=== PATIENT | male | born 1970 | race Caucasian/White ===

== ENCOUNTER 2018-04-25 13:14 | Emergency (ER) | payer SELFPAY ==
[~2018-04-25] VITALS: Ht 175.3 cm; Wt 112.5 kg
[~2018-04-25 13:14] MED LIST: BENZ2AMP3 PO; HALO5TAB8 PO; ZIPR80CA2 PO
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
--- NOTE | 2018-04-25 14:28 | NUR ---
TOI MAIER AT BS FOR RE-EVAL.
--- NOTE | 2018-04-25 14:37 | NUR ---
CALLED PINEDA, GOLF INSTRUCTOR. PINEDA WILL SEE THE PATIENT IN THE WAITING ROOM.
--- NOTE | 2018-04-25 14:40 | NUR ---
Patient discharged to home in stable condition. Written and verbal after care instructions given. Patient verbalizes understanding of instruction.
--- NOTE | 2018-04-25 14:41 | NUR ---
PINEDA, SUPERVISOR TUMBLING AND ROLLING AT
[2018-04-25 14:42] VITALS: BP 112/71
--- NOTE | 2018-04-25 14:49 | NUR ---
RUPERT received a call from BEBETO Gordon requesting to assist pt. with some resources. RUPERT met with pt. bedside. Pt. is alert and oriented x 4. Pt. is cooperative and pleasant with SW. Pt. states he resides with his sister and she will be coming to pick him up from the hospital. Pt. is interested in referrals to board and care facilities. RUPERT gave him the following list of board and care: [facility] ; [facility] and [facility] . No other social service needs are requested at this time. SW is available, if needed. RUPERT updated BEBETO Gordon regarding providing pt. with needed resources.
== END 2018-04-25 14:44 | disposition home or self-care (01) ==
LOC: ER 13:16
DX: S93.402A Sprain of unspecified ligament of left ankle, initial encounter (principal); B35.3 Tinea pedis; E11.9 Type 2 diabetes mellitus without complications; F25.9 Schizoaffective disorder, unspecified; F17.200 Nicotine dependence, unspecified, uncomplicated; Z88.8 Allergy status to other drugs, medicaments and biological substances; Z60.2 Problems related to living alone; V79.9XXA Bus occupant (driver) (passenger) injured in unspecified traffic accident, initial encounter; Y93.89 Activity, other specified; Y92.410 Unspecified street and highway as the place of occurrence of the external cause; Y99.8 Other external cause status
CPT/HCPCS: 73610-TC; 73630-TC; A4606; Z7610

== ENCOUNTER 2019-01-26 03:49 | Emergency (ER) | payer OTHER ==
[~2019-01-26] VITALS: Ht 175.3 cm; Wt 115.7 kg
--- NOTE | 2019-01-26 04:05 | NUR ---
PER PT REQUEST, PROVIDED PT WITH SANDWICH, WATER, TOOTH BRUSH, AND TOOTH PASTE
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
[2019-01-26 04:23] LABS: BASOPHILS % (AUTO) 0.5 % (0.0-2.0); EOSINOPHILS % (AUTO) 1.6 % (0.0-6.0); HEMATOCRIT 46 % (39-51); HEMOGLOBIN 15.9 g/dL (13.5-17.5); LYMPHOCYTES # (AUTO) 2.7 /CMM (0.8-4.8); LYMPHOCYTES % (AUTO) 32.7 % (20.0-44.0); MEAN CORPUSCULAR HGB CONC 35 g/dl (31.0-36.0); MEAN CORPUSCULAR VOLUME 92 fL (80-96); MONOCYTES # (AUTO) 0.6 /CMM (0.1-1.30); MONOCYTES % (AUTO) 6.8 % (2.0-12.0); NEUTROPHILS # (AUTO) 4.8 /CMM (1.8-8.9); NEUTROPHILS % (AUTO) 58.4 % (43.0-81.0); PLATELET COUNT (AUTO) 310 /CMM (150-450); RED BLOOD CELL COUNT(AUTO) 4.94 MIL/uL (4.5-6.0); WHITE BLOOD COUNT (AUTO) 8.3 K/uL (4.3-11.0)
[2019-01-26 04:29] LABS: CALCIUM, SERUM 8.9 mg/dL (8.5-10.1); CARBON DIOXIDE 27 mmol/L (21-32); CHLORIDE 98 mmol/L (98-107); CREATININE 1.1 mg/dL (0.6-1.3); GLUCOSE 144 mg/dL (74-106); POTASSIUM 3.3 mmol/L (3.5-5.1); SODIUM SERUM 136 mmol/L (136-145); UREA NITROGEN, BLOOD 12 mg/dL (7-18)
[2019-01-26 04:36] LABS: ACETAMINOPHEN 0 ug/ml (10-30); ALANINE AMINOTRANSFERASE 26 U/L (12-78); ALBUMIN 3.4 g/dL (3.4-5.0); ALCOHOL, BLOOD < 3 mg/dL (0-0); ALKALINE PHOSPHATASE 61 U/L (46-116); ASPARTATE AMINOTRANSFERASE 19 U/L (15-37); BILIRUBIN,DIRECT 0.1 mg/dL (0.0-0.2); BILIRUBIN,TOTAL 0.2 mg/dL (0.2-1.0); SALICYLATE 2.5 mg/dL (2.8-20.0); TOTAL PROTEIN, SERUM 7.3 g/dL (6.4-8.2)
[2019-01-26] MEDS ORDERED: POTASSIUM CHLORIDE 20 MEQ TAB.PRT.SR PO ONE ×2 (05:00→05:10)
[2019-01-26 05:27] LABS: APPEARANCE,URINE Clear (CLEAR); BILIRUBIN,URINE Negative (NEGATIVE); BLOOD, URINE Trace-lysed Ery/uL (NEGATIVE); COLOR,URINE Yellow (YELLOW); KETONES,URINE Negative (NEGATIVE); LEUKOCYTE ESTERASE ,URINE Negative (NEGATIVE); NITRITE, URINE Negative (NEGATIVE); PROTEIN,URINE Negative (NEGATIVE); UGLUCOSE Negative (NEGATIVE); UROBILINOGEN,URINE 0.2 EU/dL (0.2)
--- NOTE | 2019-01-26 05:33 | NUR ---
UA COLLECTED AND SENT.
[2019-01-26 06:03] LABS: BACTERIA,URINE Rare /HPF (None Seen); RBC,URINE 0-2 /HPF (0-2); SQUAMOUS EPITHELIAL CELL,UR Rare /HPF (None Seen); WBC,URINE 0-2 /HPF (0-3)
--- NOTE | 2019-01-26 07:02 | NUR ---
PT ASLEEP, ALL NEEDS MET, VS STABLE.
[2019-01-26 07:04] VITALS: BP 132/84
--- NOTE | 2019-01-26 08:45 | NUR ---
RECEIVED CALL FROM OSWALDO OF [facility] FOR PT INTAKE AND TO INFORM TO GIVE REPORT. PT TRANSPORT ARRANGED MY [facility]. ETA IN 1 HOUR.
--- NOTE | 2019-01-26 09:00 | NUR ---
VS 135/83, 97.9, 85, 16, 100% ON RA, 0/10 PAIN
--- NOTE | 2019-01-26 09:03 | NUR ---
REPORT GIVEN TO BEBETO AGRAWAL OF [facility]. AWAITING PT TRANSPORT FOR FLO.
--- NOTE | 2019-01-26 09:10 | NUR ---
PROVIDED BREAKFAST TRAY. PT TOLERATING PO WELL
--- NOTE | 2019-01-26 09:30 | NUR ---
1ST MED TRANSPORT ARRIVED TO [facility] FOR TRANSPORT. REPORT GIVEN TO AMBULANCE STAFF.
--- NOTE | 2019-01-26 09:39 | NUR ---
Ivan portillo in [facility] - 01/26/19 at 0943 by MARY BETH DC
--- NOTE | 2019-01-26 09:39 | NUR ---
Patient discharged to home in stable condition. Written and verbal after care instructions given. Patient verbalizes understanding of instruction.
--- NOTE | 2019-01-26 09:41 | NUR ---
PT LEFT VIA GURNEY TO [facility] VIA AMBULANCE WITH 2 STAFF.
== END 2019-01-26 09:40 ==
LOC: ER 03:53
DX: R45.851 Suicidal ideations (principal); I10 Essential (primary) hypertension; E78.5 Hyperlipidemia, unspecified; E11.9 Type 2 diabetes mellitus without complications; M41.9 Scoliosis, unspecified; F17.200 Nicotine dependence, unspecified, uncomplicated; Z88.8 Allergy status to other drugs, medicaments and biological substances; Z60.2 Problems related to living alone; Z79.899 Other long term (current) drug therapy
CPT/HCPCS: 36415; 80048; 80076; 80305; 80307; 80329; 81001; 85025; 99285; G0480; 81000-TC

== ENCOUNTER 2019-02-23 01:31 | Emergency (ER) | payer OTHER ==
[~2019-02-23] VITALS: Ht 175.3 cm; Wt 116.6 kg
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
--- NOTE | 2019-02-23 01:56 | NUR ---
MD AT BEDSIDE FOR EVAL. PT VERY RUDE, ARROGANT AND CURSED MD DURING EVAL.
--- NOTE | 2019-02-23 02:06 | NUR ---
pt refused to give urine specimen at this time. per pt he has not been drinking water.
--- NOTE | 2019-02-23 02:10 | NUR ---
COLLEGE ATHLETE AT BEDSIDE FOR BLOOD DRAW
--- NOTE | 2019-02-23 02:13 | NUR ---
MD AWARE THAT PT IS UNABLE TO GIVE URINE AT THIS TIME.
[2019-02-23 02:26] LABS: BASOPHILS % (AUTO) 0.5 % (0.0-2.0); EOSINOPHILS % (AUTO) 2.3 % (0.0-6.0); HEMATOCRIT 49 % (39-51); HEMOGLOBIN 17.1 g/dL (13.5-17.5); LYMPHOCYTES # (AUTO) 2.1 /CMM (0.8-4.8); MEAN CORPUSCULAR HGB CONC 35 g/dl (31.0-36.0); MEAN CORPUSCULAR VOLUME 90 fL (80-96); MONOCYTES # (AUTO) 0.5 /CMM (0.1-1.30); MONOCYTES % (AUTO) 5.9 % (2.0-12.0); NEUTROPHILS # (AUTO) 6.5 /CMM (1.8-8.9); NEUTROPHILS % (AUTO) 69.3 % (43.0-81.0); PLATELET COUNT (AUTO) 270 /CMM (150-450); RED BLOOD CELL COUNT(AUTO) 5.41 MIL/uL (4.5-6.0); WHITE BLOOD COUNT (AUTO) 9.4 K/uL (4.3-11.0)
[2019-02-23 02:28] LABS: CALCIUM, SERUM 9.2 mg/dL (8.5-10.1); CARBON DIOXIDE 27 mmol/L (21-32); CHLORIDE 102 mmol/L (98-107); GLUCOSE 158 mg/dL (74-106); POTASSIUM 4.2 mmol/L (3.5-5.1); SODIUM SERUM 141 mmol/L (136-145); UREA NITROGEN, BLOOD 13 mg/dL (7-18)
[2019-02-23 02:33] LABS: ALANINE AMINOTRANSFERASE 32 U/L (12-78); ALCOHOL, BLOOD < 3 mg/dL (0-0); ALKALINE PHOSPHATASE 82 U/L (46-116); ASPARTATE AMINOTRANSFERASE 18 U/L (15-37); BILIRUBIN,DIRECT 0.1 mg/dL (0.0-0.2); BILIRUBIN,TOTAL 0.5 mg/dL (0.2-1.0); TOTAL PROTEIN, SERUM 8.2 g/dL (6.4-8.2)
[2019-02-23 02:34] LABS: ACETAMINOPHEN 0 ug/ml (10-30); SALICYLATE 2.7 mg/dL (2.8-20.0)
[2019-02-23 03:08] LABS: APPEARANCE,URINE Clear (CLEAR); BILIRUBIN,URINE Negative (NEGATIVE); BLOOD, URINE Trace-lysed Ery/uL (NEGATIVE); COLOR,URINE Yellow (YELLOW); KETONES,URINE Negative (NEGATIVE); LEUKOCYTE ESTERASE ,URINE Negative (NEGATIVE); NITRITE, URINE Negative (NEGATIVE); PROTEIN,URINE Negative (NEGATIVE); UGLUCOSE Negative (NEGATIVE); UROBILINOGEN,URINE 0.2 EU/dL (0.2)
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
[2019-02-23] MEDS ORDERED: HALOPERIDOL LACTATE INJ 5 MG/ML VIAL ONE (03:22)
[2019-02-23] MEDS ORDERED: LORAZEPAM INJ 2 MG/ML VIAL ONE (03:23)
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
[2019-02-23] MEDS ORDERED: LORAZEPAM INJ 2 MG/ML VIAL IM ONE (03:30)
[2019-02-23] MEDS ORDERED: HALOPERIDOL LACTATE INJ 5 MG/ML VIAL IM ONE (03:30)
--- NOTE | 2019-02-23 03:44 | NUR ---
PT HOOKED ON MONITOR.
[2019-02-23 04:07] LABS: BACTERIA,URINE None seen /HPF (None Seen); RBC,URINE 0-2 /HPF (0-2); SQUAMOUS EPITHELIAL CELL,UR Few /HPF (None Seen); WBC,URINE 0-2 /HPF (0-3)
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
--- NOTE | 2019-02-23 05:40 | NUR ---
PTS OTHER RESTRAINT ON LEFT EXTREMETY RELEASE SINCE PT HAS BEEN SLEEPING.
--- NOTE | 2019-02-23 06:15 | NUR ---
PT IN BED SLEEPING.
--- NOTE | 2019-02-23 07:02 | NUR ---
PT IN BED STILL SLEEPING.
--- NOTE | 2019-02-23 07:31 | NUR ---
REPORT RECEIVED FROM KIM TATE FOR JUANITA
--- NOTE | 2019-02-23 07:33 | NUR ---
REPORT GIVEN TO BEBETO YORK FOR JUANITA.
--- NOTE | 2019-02-23 08:25 | NUR ---
PT SLEEPING, EASILY AROUSED BY VOICE. HOOKED TO MONITOR, VSS. KEPT SAFE AND COMFORTABLE.
--- NOTE | 2019-02-23 10:20 | NUR ---
PT IS AWAKE, AMBULATORY W/ STEADY GAIT. DR TRACY TALKING TO PT. DENIES BEING HOMELESS. WANT TO BE DISCHARGE HOME. VSS.
--- NOTE | 2019-02-23 10:50 | NUR ---
Patient denies being homeless, refused tap card or taxi. Patient insisted on being discharge, and refused to have ID band to be removed, Patient discharged to home in stable condition. Written and verbal after care instructions given. Patient verbalizes understanding of instruction.
[2019-02-23 11:04] VITALS: BP 128/72
== END 2019-02-23 11:06 | disposition home or self-care (01) ==
LOC: ER 01:34
DX: R45.1 Restlessness and agitation (principal); I10 Essential (primary) hypertension; E78.5 Hyperlipidemia, unspecified; E11.9 Type 2 diabetes mellitus without complications; F32.9 Major depressive disorder, single episode, unspecified; F25.9 Schizoaffective disorder, unspecified; F12.90 Cannabis use, unspecified, uncomplicated; Z88.8 Allergy status to other drugs, medicaments and biological substances; Z60.2 Problems related to living alone; Z79.899 Other long term (current) drug therapy
CPT/HCPCS: 36415; 80048; 80076; 80305; 80307; 80329; 81001; 85025; 96372 ×2; 99284; G0480; J1630; J2060; 81000-TC

== ENCOUNTER 2019-02-24 04:18 | Emergency (ER) | payer OTHER ==
[~2019-02-24] VITALS: Ht 175.3 cm; Wt 117.0 kg
--- NOTE | 2019-02-24 04:41 | NUR ---
PT BIB BY [facility]. PT STATING HE HAS MENTAL BREAKDOWN. PT AT ER BED, CALM DOWN.
[2019-02-24 04:53] LABS: APPEARANCE,URINE Clear (CLEAR); BILIRUBIN,URINE Negative (NEGATIVE); BLOOD, URINE Trace-lysed Ery/uL (NEGATIVE); COLOR,URINE Yellow (YELLOW); KETONES,URINE Negative (NEGATIVE); LEUKOCYTE ESTERASE ,URINE Negative (NEGATIVE); NITRITE, URINE Negative (NEGATIVE); PROTEIN,URINE Negative (NEGATIVE); UGLUCOSE Negative (NEGATIVE); UROBILINOGEN,URINE 0.2 EU/dL (0.2)
[2019-02-24 05:10] LABS: BACTERIA,URINE None seen /HPF (None Seen); RBC,URINE 0-2 /HPF (0-2); SQUAMOUS EPITHELIAL CELL,UR Few /HPF (None Seen); WBC,URINE 0-2 /HPF (0-3)
[2019-02-24 05:13] LABS: BASOPHILS % (AUTO) 0.3 % (0.0-2.0); EOSINOPHILS % (AUTO) 3.3 % (0.0-6.0); HEMATOCRIT 48 % (39-51); HEMOGLOBIN 16.8 g/dL (13.5-17.5); LYMPHOCYTES # (AUTO) 2.6 /CMM (0.8-4.8); LYMPHOCYTES % (AUTO) 24.8 % (20.0-44.0); MEAN CORPUSCULAR HGB CONC 35 g/dl (31.0-36.0); MEAN CORPUSCULAR VOLUME 92 fL (80-96); MONOCYTES # (AUTO) 0.6 /CMM (0.1-1.30); MONOCYTES % (AUTO) 6.1 % (2.0-12.0); NEUTROPHILS # (AUTO) 6.7 /CMM (1.8-8.9); NEUTROPHILS % (AUTO) 65.5 % (43.0-81.0); PLATELET COUNT (AUTO) 290 /CMM (150-450); RED BLOOD CELL COUNT(AUTO) 5.23 MIL/uL (4.5-6.0); WHITE BLOOD COUNT (AUTO) 10.3 K/uL (4.3-11.0)
[2019-02-24 05:22] LABS: CARBON DIOXIDE 31 mmol/L (21-32); CHLORIDE 100 mmol/L (98-107); CREATININE 0.9 mg/dL (0.6-1.3); GLUCOSE 154 mg/dL (74-106); POTASSIUM 3.9 mmol/L (3.5-5.1); SODIUM SERUM 137 mmol/L (136-145); UREA NITROGEN, BLOOD 17 mg/dL (7-18)
[2019-02-24 05:27] LABS: ACETAMINOPHEN 0 ug/ml (10-30); ALANINE AMINOTRANSFERASE 37 U/L (12-78); ALBUMIN 3.8 g/dL (3.4-5.0); ALCOHOL, BLOOD < 3 mg/dL (0-0); ALKALINE PHOSPHATASE 83 U/L (46-116); ASPARTATE AMINOTRANSFERASE 25 U/L (15-37); BILIRUBIN,DIRECT 0.1 mg/dL (0.0-0.2); BILIRUBIN,TOTAL 0.4 mg/dL (0.2-1.0); SALICYLATE 2.8 mg/dL (2.8-20.0)
[2019-02-24] MEDS ORDERED: LORAZEPAM 1 MG TABLET ONE (06:36)
[2019-02-24] MEDS ORDERED: LORAZEPAM 1 MG TABLET PO ONE (07:00)
--- NOTE | 2019-02-24 07:30 | NUR ---
REPORT RECEIVED FROM KIM TATE FOR JUANITA
--- NOTE | 2019-02-24 07:35 | NUR ---
PT DENIES HOMELESSNESS.
--- NOTE | 2019-02-24 07:56 | NUR ---
Patient discharged to home in stable condition. Written and verbal after care instructions given. Patient verbalizes understanding of instruction.
[2019-02-24 07:57] VITALS: BP 126/87
== END 2019-02-24 07:59 | disposition home or self-care (01) ==
LOC: ER 04:21
DX: F31.9 Bipolar disorder, unspecified (principal); B88.9 Infestation, unspecified; I10 Essential (primary) hypertension; E78.5 Hyperlipidemia, unspecified; E11.9 Type 2 diabetes mellitus without complications; F20.9 Schizophrenia, unspecified; F17.200 Nicotine dependence, unspecified, uncomplicated; Z88.8 Allergy status to other drugs, medicaments and biological substances; Z60.2 Problems related to living alone; Z79.899 Other long term (current) drug therapy
CPT/HCPCS: 36415; 80048; 80076; 80305; 80307; 80329; 81001; 85025; 99284; G0480; 81000-TC

== ENCOUNTER 2019-02-27 04:29 | Emergency (ER) | payer OTHER ==
[~2019-02-27] VITALS: Ht 175.3 cm; Wt 99.8 kg
[2019-02-27] MEDS ORDERED: HALOPERIDOL LACTATE INJ 5 MG/ML VIAL IM ONE (04:30)
[2019-02-27] MEDS ORDERED: diphenhydrAMINE HCL 50 MG/ML VIAL IM ONE (04:30)
[2019-02-27] MEDS ORDERED: LORAZEPAM INJ 2 MG/ML VIAL IM ONE ×2 (04:30→06:30)
[2019-02-27] MEDS ORDERED: diphenhydrAMINE HCL 50 MG/ML VIAL ONE (04:36)
[2019-02-27] MEDS ORDERED: LORAZEPAM INJ 2 MG/ML VIAL ONE (04:37)
[2019-02-27] MEDS ORDERED: HALOPERIDOL LACTATE INJ 5 MG/ML VIAL ONE (04:37)
[2019-02-27 04:55] LABS: BASOPHILS # (AUTO) 0.1 /CMM (0.0-0.2); BASOPHILS % (AUTO) 0.5 % (0.0-2.0); EOSINOPHILS % (AUTO) 1.9 % (0.0-6.0); HEMATOCRIT 48 % (39-51); HEMOGLOBIN 16.9 g/dL (13.5-17.5); LYMPHOCYTES # (AUTO) 2.6 /CMM (0.8-4.8); LYMPHOCYTES % (AUTO) 24.7 % (20.0-44.0); MEAN CORPUSCULAR HGB CONC 35 g/dl (31.0-36.0); MEAN CORPUSCULAR VOLUME 91 fL (80-96); MONOCYTES # (AUTO) 0.6 /CMM (0.1-1.30); NEUTROPHILS # (AUTO) 6.9 /CMM (1.8-8.9); NEUTROPHILS % (AUTO) 66.9 % (43.0-81.0); PLATELET COUNT (AUTO) 287 /CMM (150-450); WHITE BLOOD COUNT (AUTO) 10.3 K/uL (4.3-11.0)
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
--- NOTE | 2019-02-27 05:06 | NUR ---
MD AWARE OF 2MG ATIVAN ADMINISTRATION. WILL CHANGE ORDER ACCORDINGLY.
--- NOTE | 2019-02-27 05:07 | NUR ---
BLOOD DRAW DONE BY RD OB TECH.
[2019-02-27 05:16] LABS: CALCIUM, SERUM 9.4 mg/dL (8.5-10.1); CARBON DIOXIDE 27 mmol/L (21-32); CHLORIDE 103 mmol/L (98-107); CREATININE 1.1 mg/dL (0.6-1.3); GLUCOSE 173 mg/dL (74-106); POTASSIUM 4.3 mmol/L (3.5-5.1); SODIUM SERUM 140 mmol/L (136-145); UREA NITROGEN, BLOOD 18 mg/dL (7-18)
--- NOTE | 2019-02-27 05:16 | NUR ---
IN AND OUT PARR IN PROGRESS AT THE BEDSIDE.
[2019-02-27 05:22] LABS: ALANINE AMINOTRANSFERASE 35 U/L (12-78); ALBUMIN 3.8 g/dL (3.4-5.0); ALCOHOL, BLOOD < 3 mg/dL (0-0); ALKALINE PHOSPHATASE 81 U/L (46-116); ASPARTATE AMINOTRANSFERASE 19 U/L (15-37); BILIRUBIN,DIRECT 0.1 mg/dL (0.0-0.2); BILIRUBIN,TOTAL 0.7 mg/dL (0.2-1.0); SALICYLATE 2.9 mg/dL (2.8-20.0); TOTAL PROTEIN, SERUM 7.8 g/dL (6.4-8.2)
[2019-02-27 05:23] LABS: ACETAMINOPHEN 0 ug/ml (10-30)
[2019-02-27 05:51] LABS: APPEARANCE,URINE Clear (CLEAR); BILIRUBIN,URINE Negative (NEGATIVE); BLOOD, URINE Small Ery/uL (NEGATIVE); COLOR,URINE Yellow (YELLOW); KETONES,URINE Negative (NEGATIVE); LEUKOCYTE ESTERASE ,URINE Negative (NEGATIVE); NITRITE, URINE Negative (NEGATIVE); PROTEIN,URINE 30 mg/dl (NEGATIVE); UGLUCOSE Negative (NEGATIVE); UROBILINOGEN,URINE 0.2 EU/dL (0.2)
[2019-02-27 06:16] LABS: BACTERIA,URINE Few /HPF (None Seen); HYALINE CASTS, URINE Rare /LPF (None Seen); SQUAMOUS EPITHELIAL CELL,UR Few /HPF (None Seen); WBC,URINE 0-2 /HPF (0-3)
--- NOTE | 2019-02-27 07:24 | NUR ---
REPORT GIVEN TO BEBETO JOHNSON FOR JUANITA.
--- NOTE | 2019-02-27 07:24 | NUR ---
sitter arrived and Restraints removed.
--- NOTE | 2019-02-27 07:53 | NUR ---
RESTRAINTS REMOVED, SITTER AT BEDSIDE. PATIENT A/OX3, NAD, VSS. WILL CONTINUE TO MONITOR.
--- NOTE | 2019-02-27 10:23 | NUR ---
SALLY CORONA CALLED,LEFT MESSAGE FOR EVAL
--- NOTE | 2019-02-27 12:46 | NUR ---
PATIENT SEEN BY SALLY. DISCHARGED BY MD. PATIENT A/OX3, NO DISTRESS NOTED, Patient discharged to home in stable condition. Written and verbal after care instructions given. Patient verbalizes understanding of instruction.
[2019-02-27 12:47] VITALS: BP 116/69
== END 2019-02-27 12:48 | disposition home or self-care (01) ==
LOC: ER 04:30
DX: F31.9 Bipolar disorder, unspecified (principal); F12.10 Cannabis abuse, uncomplicated; R45.1 Restlessness and agitation; F28 Other psychotic disorder not due to a substance or known physiological condition; I10 Essential (primary) hypertension; E78.5 Hyperlipidemia, unspecified; F25.9 Schizoaffective disorder, unspecified; E11.9 Type 2 diabetes mellitus without complications; Z88.8 Allergy status to other drugs, medicaments and biological substances; Z60.2 Problems related to living alone; Z79.899 Other long term (current) drug therapy
CPT/HCPCS: 36415; 51701; 80048; 80076; 80305; 80307; 80329; 81001; 85025; 96372 ×2; 99284; G0480; J1200; J1630; J2060; 81000-TC

== ENCOUNTER 2021-04-20 08:49 | Emergency (ER) | payer OTHER ==
[~2021-04-20] VITALS: Ht 172.7 cm; Wt 107.5 kg
--- NOTE | 2021-04-20 08:49 | NUR ---
PT BIBRA 860 AND [employer] C/O SI "I WANT TO CUT MY WRIST AND GOT SHOT BY THE POLICE." PT IS AAOX3, NOT IN RESPIRATORY DISTRESS, V/S STABLE, KEPT RESTED AND COMFORTABLE. SITTER AT BEDSIDE. WILL CONTINUE TO MONITOR.
--- NOTE | 2021-04-20 08:52 | NUR ---
PT SEEN AND EXAMINED BY .
[2021-04-20] MEDS ORDERED: OLANZAPINE 10 MG VIAL IM ONE ×2 (08:58→09:00)
[2021-04-20] MEDS ORDERED: LORAZEPAM INJ 2 MG/ML VIAL ONE (08:59)
[2021-04-20] MEDS ORDERED: LORAZEPAM INJ 2 MG/ML VIAL IM ONE (09:00)
--- NOTE | 2021-04-20 09:03 | NUR ---
ER PHLEB AT BEDSIDE FOR BLOOD DRAW.
[2021-04-20 09:16] LABS: PLATELET COUNT (AUTO) 281 K/uL (150-450)
[2021-04-20 09:20] LABS: BASOPHILS % (AUTO) 0.2 % (0.0-2.0); CALCIUM, SERUM 9.6 mg/dL (8.5-10.1); CARBON DIOXIDE 28 mmol/L (21-32); CHLORIDE 97 mmol/L (98-107); CREATININE 1.1 mg/dL (0.6-1.3); EOSINOPHILS % (AUTO) 0.5 % (0.0-6.0); GLUCOSE 173 mg/dL (74-106); HEMATOCRIT 49 % (39-51); LYMPHOCYTES # (AUTO) 2.3 K/uL (0.8-4.8); LYMPHOCYTES % (AUTO) 18.7 % (20.0-44.0); MEAN CORPUSCULAR HGB CONC 35 g/dl (31.0-36.0); MEAN CORPUSCULAR VOLUME 92 fL (80-96); MONOCYTES # (AUTO) 0.9 K/uL (0.1-1.30); MONOCYTES % (AUTO) 7.5 % (2.0-12.0); NEUTROPHILS # (AUTO) 8.8 K/uL (1.8-8.9); NEUTROPHILS % (AUTO) 73.1 % (43.0-81.0); POTASSIUM 3.4 mmol/L (3.5-5.1); RED BLOOD CELL COUNT(AUTO) 5.34 MIL/uL (4.5-6.0); SODIUM SERUM 137 mmol/L (136-145); UREA NITROGEN, BLOOD 13 mg/dL (7-18); WHITE BLOOD COUNT (AUTO) 12.1 K/uL (4.3-11.0)
[2021-04-20 09:26] LABS: ACETAMINOPHEN < 10 ug/ml (10-30); ALANINE AMINOTRANSFERASE 29 U/L (12-78); ALCOHOL, BLOOD 0 mg/dL (0-0); ALKALINE PHOSPHATASE 69 U/L (46-116); ASPARTATE AMINOTRANSFERASE 26 U/L (15-37); BILIRUBIN,DIRECT 0.2 mg/dL (0.0-0.2)
--- NOTE | 2021-04-20 10:30 | NUR ---
Toolman note: Toolman consult requested for suicidal ideation. Patient is a 50-year-old, male. SW attempted to interview patient at his bedside in the emergency department. Patient was sleeping and unarousable. SW will coordinate with ED nursing staff and follow up with the patient at a later time.
--- NOTE | 2021-04-20 14:10 | NUR ---
Gum Rolling Machine Operator consult: human resources services specialist consult requested for suicidal ideation. Patient is a 50-year-old, male. SW met with patient at his bedside in the emergency department. Patient was resting. Patient was alert and oriented x3. Patient was unable to recall the situation which brought him to the hospital. Per chart, patient was brought in by ambulance and [employer] from home on 04/20/21 for suicidal ideation with a plan to cut his wrists and get shot by the police. Patient reported that he is currently experiencing suicidal ideation, without a plan. Patient requested to be referred to an inpatient psychiatric hospital for voluntary admission. SW will follow up and fax clinicals to [facility], , for review. Patient stated that he is currently homeless and reported I wont be able to return to the apartment I was living in because of the outburst. Patient reported no current source of income and stated that his prior living arrangement was paid for by [facility]. SW asked patient if he has a history of substance use and patient reported occasional marijuana use. SW assessed patients history of mental illness and patient reported that he has a history of Schizoaffective Disorder and is currently taking, Depakote and Haloperidol. Patient reported a history of hallucinations and stated, I hear and see images or cars. SW offered patient homeless resources. Patient declined the resources and stated, I dont need them. Patient signed the homeless waiver and SW filed waiver in the patients chart. SW will fax clinicals to [facility] for review. PLAN: RUPERT will fax clinicals to [facility] for review.
--- NOTE | 2021-04-20 14:20 | NUR ---
Manager Content note: RUPERT faxed clinicals to [facility], , for review.
--- NOTE | 2021-04-20 14:26 | NUR ---
URINE SPECIMEN COLLECTED AND SENT TO LAB.
[2021-04-20 14:34] LABS: BILIRUBIN,URINE SMALL (NEGATIVE); COLOR,URINE YELLOW (YELLOW); LEUKOCYTE ESTERASE ,URINE Negative (NEGATIVE); NITRITE, URINE Negative (NEGATIVE); PROTEIN,URINE 100 mg/dl (NEGATIVE); UGLUCOSE Negative (NEGATIVE)
[2021-04-20 14:47] LABS: BACTERIA,URINE Rare /HPF (None Seen); RBC,URINE 21-50 /HPF (0-2); SQUAMOUS EPITHELIAL CELL,UR 0-2 /HPF (None Seen); WBC,URINE 0-2 /HPF (0-3)
--- NOTE | 2021-04-20 18:57 | NUR ---
CALLED ALVIN, SHE WILL CALL [facility]AC[facility] AND WILL CALL US BACK.
--- NOTE | 2021-04-20 19:06 | NUR ---
CALLED PINKY FOR EVAL, SHE WILL BE ON HER WAY.
--- NOTE | 2021-04-20 20:09 | NUR ---
SEEN BY ALVIN FROM CRISIS TEAM. CLINICAL AND FACE SHEETS WERE FAXED TO [facility] FOR VOLUNTARY ADMISSION
--- NOTE | 2021-04-21 02:05 | NUR ---
PATIENT IS SLEEPING. EASILY AROUSABLE THROUGH VERBAL STIMULI. PATIENT IS CONNECTED TO THE MONITOR. PATIENT IS BREATHING EVENLY AND UNLABORED ON ROOM AIR. SITTER IS AT BEDSIDE. BED'S POSITION AT THE LOWEST. WILL CONTINUE TO MONITOR THE PATIENT CLOSELY.
--- NOTE | 2021-04-21 04:41 | NUR ---
CALLED [facility] FOR FOLLOW UP. NO UPDATE YET. THEY WILL GIVE US A CALL BACK WHEN THERE'S AN UPDATE
--- NOTE | 2021-04-21 06:31 | NUR ---
PATIENT IS ASLEEP. EASILY AROUSABLE. VSS. BED RAILS ARE UP. BED IN THE LOWEST POSITION. SITTER IS AT BEDSIDE.
--- NOTE | 2021-04-21 08:03 | NUR ---
CALLED [facility] PT [facility] UNDER DR. ALMENDAREZ AND TRACY CALL [phone] X [phone]
[2021-04-21 08:50] VITALS: BP 127/84
--- NOTE | 2021-04-21 08:50 | NUR ---
TRANSPORTED TO [facility] IN STABLE CONDITION.
== END 2021-04-21 08:52 ==
LOC: ER 09:58
DX: F31.9 Bipolar disorder, unspecified (principal); R45.851 Suicidal ideations; F12.10 Cannabis abuse, uncomplicated; U07.1 COVID-19; E87.6 Hypokalemia; D72.829 Elevated white blood cell count, unspecified; Z88.8 Allergy status to other drugs, medicaments and biological substances; E78.5 Hyperlipidemia, unspecified; I10 Essential (primary) hypertension; E11.9 Type 2 diabetes mellitus without complications; Z79.899 Other long term (current) drug therapy
CPT/HCPCS: 36415; 80048; 80076; 80143; 80307; 80320; 81001; 85025; 87426; 96372 ×2; 99291; C9803; J2060; J3490; G0480

== ENCOUNTER 2022-03-17 20:47 | Emergency (ER) | payer OTHER ==
[~2022-03-17] VITALS: Ht 180.3 cm; Wt 115.7 kg
--- NOTE | 2022-03-17 21:30 | NUR ---
[id number] C/O BACK PAIN NON RADIATING. PLACED COMFORTABLY IN BED. VITALS CHECKED.
[2022-03-17 21:40] VITALS: BP 154/90
[2022-03-17] MEDS ORDERED: KETOROLAC TROMETHAMINE INJ 60 MG/2 ML VIAL IM ONE ×2 (22:19→22:30)
[2022-03-17] MEDS ORDERED: CYCLOBENZAPRINE 10 MG TABLET ONE (22:19)
[2022-03-17] MEDS ORDERED: CYCLOBENZAPRINE 10 MG TABLET PO ONE (22:30)
--- NOTE | 2022-03-17 23:48 | NUR ---
DR LIU ON THE PHONE WITH DR CHAPA
--- NOTE | 2022-03-18 00:30 | NUR ---
COVID SWAB COLLECTED SENT TO LAB
--- NOTE | 2022-03-18 01:41 | NUR ---
Patient does not wish to proceed with medical care recommended by Dr. Miller. Patient given information related to possible complications, up to and including , which could occur as a result of leaving the hospital at this time. Patient verbalizes understanding of risks involved due to leaving against medical advice. Patient has signed AMA form.
== END 2022-03-18 02:07 | disposition left against medical advice (07) ==
LOC: ER 20:59
DX: M54.9 Dorsalgia, unspecified (principal); M48.061 Spinal stenosis, lumbar region without neurogenic claudication; F25.9 Schizoaffective disorder, unspecified; G89.29 Other chronic pain; Z20.822 Contact with and (suspected) exposure to COVID-19; Z53.29 Procedure and treatment not carried out because of patient's decision for other reasons; F17.200 Nicotine dependence, unspecified, uncomplicated
CPT/HCPCS: 72131; 87426; 96372; 99284; C9803; J1885

== ENCOUNTER → 2022-09-10 | Emergency (ER) | payer OTHER ==
[~2022-09-10] VITALS: Ht 170.2 cm; Wt 102.1 kg
[2022-09-10 12:04] VITALS: BP 166/83
--- NOTE | 2022-09-10 12:09 | NUR ---
pt insistent on smoking as soon as he came in states "Im a heavy smoker" Denies any medical complaints at this time. Walked out. Gait steady
--- NOTE | 2022-09-10 12:30 | NUR ---
Unable to find patient- Eloped. notified
== END | disposition home or self-care (01) ==
LOC: ER 12:02
DX: Z53.21 Procedure and treatment not carried out due to patient leaving prior to being seen by health care provider (principal)

== ENCOUNTER 2022-09-11 16:45 | Emergency (ER) | payer OTHER ==
[~2022-09-11] VITALS: Ht 167.6 cm; Wt 108.9 kg
--- NOTE | 2022-09-11 16:55 | NUR ---
TO ER BED 18, [id number] [facility] HOME C/O SI/HI WITH NO PLAN, HEARING VOICES, STATES "SMOKED MARIJUANA EARLIER", POSSIBLE OUTBURSTS, REQUESTS VOLUNTARY PSYCH ADMIT, AAOX3, BREATHING EVEN AND NON LABORED, AWAITING MD ORDERS
--- NOTE | 2022-09-11 17:12 | NUR ---
SECURITY AT ROOM 19 WITH PATIENT. WANDED PATIENT, PLACED BELONGINGS TO LOCKER.
--- NOTE | 2022-09-11 17:21 | NUR ---
URINE SAMPLE COLLECTED AND SENT TO LAB
--- NOTE | 2022-09-11 17:51 | NUR ---
COVID SWAB DONE AND SENT TO LAB
[2022-09-11 18:05] LABS: BASOPHILS % (AUTO) 0.4 % (0.0-2.0); EOSINOPHILS % (AUTO) 1.2 % (0.0-6.0); HEMATOCRIT 46 % (39-51); HEMOGLOBIN 15.6 g/dL (13.5-17.5); LYMPHOCYTES # (AUTO) 2.1 K/uL (0.8-4.8); LYMPHOCYTES % (AUTO) 25.3 % (20.0-44.0); MEAN CORPUSCULAR HGB CONC 34 g/dl (31.0-36.0); MEAN CORPUSCULAR VOLUME 90 fL (80-96); MONOCYTES # (AUTO) 0.5 K/uL (0.1-1.30); MONOCYTES % (AUTO) 6.2 % (2.0-12.0); NEUTROPHILS # (AUTO) 5.6 K/uL (1.8-8.9); NEUTROPHILS % (AUTO) 66.9 % (43.0-81.0); PLATELET COUNT (AUTO) 275 K/uL (150-450); RED BLOOD CELL COUNT(AUTO) 5.06 MIL/uL (4.5-6.0); WHITE BLOOD COUNT (AUTO) 8.4 K/uL (4.3-11.0)
[2022-09-11 18:09] LABS: BILIRUBIN,URINE NEGATIVE (NEGATIVE); LEUKOCYTE ESTERASE ,URINE NEGATIVE (NEGATIVE); NITRITE, URINE NEGATIVE (NEGATIVE); PROTEIN,URINE NEGATIVE (NEGATIVE); UGLUCOSE 2+ mg/dL (NEGATIVE); UROBILINOGEN,URINE 0.2 EU/dL (0.2)
[2022-09-11 18:15] LABS: COLOR,URINE LIGHT YELLOW (YELLOW)
[2022-09-11 18:29] LABS: RBC,URINE 0-2 /HPF (0-2)
[2022-09-11 18:30] LABS: BACTERIA,URINE None seen /HPF (None Seen); SQUAMOUS EPITHELIAL CELL,UR 0-2 /HPF (None Seen); WBC,URINE NONE SEEN /HPF (0-3)
[2022-09-11 18:33] LABS: ALANINE AMINOTRANSFERASE 60 U/L (12-78); ALBUMIN 3.7 g/dL (3.4-5.0); ALCOHOL, BLOOD < 3 mg/dL (0-0); ALKALINE PHOSPHATASE 72 U/L (46-116); ASPARTATE AMINOTRANSFERASE 69 U/L (15-37); BILIRUBIN,DIRECT 0.2 mg/dL (0.0-0.2); BILIRUBIN,TOTAL 0.8 mg/dL (0.2-1.0); CALCIUM, SERUM 8.7 mg/dL (8.5-10.1); CARBON DIOXIDE 26 mmol/L (21-32); CHLORIDE 107 mmol/L (98-107); CREATININE 0.9 mg/dL (0.6-1.3); GLUCOSE 213 mg/dL (74-106); POTASSIUM 3.3 mmol/L (3.5-5.1); SODIUM SERUM 133 mmol/L (136-145); UREA NITROGEN, BLOOD 15 mg/dL (7-18)
[2022-09-11 18:37] LABS: ACETAMINOPHEN 0 ug/ml (10-30)
--- NOTE | 2022-09-11 19:14 | NUR ---
PT PACING AND AGITATED, SAYING HES NO LONGER SUICIDAL AND WANTS TO LEAVE. MADE AWARE.
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
[2022-09-11 19:57] VITALS: BP 116/83
== END 2022-09-11 19:58 | disposition left against medical advice (07) ==
LOC: ER 16:47
DX: R45.851 Suicidal ideations (principal); Z20.822 Contact with and (suspected) exposure to COVID-19; F20.9 Schizophrenia, unspecified; Z88.8 Allergy status to other drugs, medicaments and biological substances; Z79.899 Other long term (current) drug therapy
CPT/HCPCS: 99285; 85025; 80048; 80076; 81001; 36415; 87426; 80143; 80320; 80307; C9803; G0480

== ENCOUNTER 2022-09-11 23:07 | Emergency (ER) | payer OTHER ==
[~2022-09-11] VITALS: Ht 165.1 cm; Wt 104.3 kg
[2022-09-11 23:10] VITALS: BP 137/75
== END 2022-09-11 23:17 | disposition home or self-care (01) ==
LOC: ER 23:10
DX: Z76.5 Malingerer [conscious simulation] (principal); Z59.00 Homelessness unspecified; F17.200 Nicotine dependence, unspecified, uncomplicated; Z88.8 Allergy status to other drugs, medicaments and biological substances; Z60.2 Problems related to living alone; Z79.899 Other long term (current) drug therapy

== ENCOUNTER 2022-10-02 01:13 | Emergency (ER) | payer OTHER ==
--- NOTE | 2022-10-02 01:30 | NUR ---
ROSELINE LAM AND LEFT WITHOUT BEING TRIAGED OR SEEN BY ER MD. RN DID NOT GET ENDORSEMENT FROM SHOE LINING FITTER. DR. SANCHES DO NOTIFIED.
== END 2022-10-02 01:30 | disposition left against medical advice (07) ==
LOC: ER 01:24
DX: Z53.21 Procedure and treatment not carried out due to patient leaving prior to being seen by health care provider (principal)

== ENCOUNTER 2022-10-06 00:15 | Emergency (ER) | payer OTHER ==
[~2022-10-06] VITALS: Ht 170.2 cm; Wt 81.6 kg
[2022-10-06 00:29] VITALS: BP 148/98
--- NOTE | 2022-10-06 00:43 | NUR ---
PATIENT LEFT WITHOUT BEING SEEN
== END 2022-10-06 01:12 | disposition left against medical advice (07) ==
LOC: ER 00:18
DX: Z53.21 Procedure and treatment not carried out due to patient leaving prior to being seen by health care provider (principal)

== ENCOUNTER 2022-10-16 17:34 | Emergency (ER) | payer OTHER ==
[~2022-10-16] VITALS: Ht 177.8 cm; Wt 113.4 kg
[2022-10-16 17:49] VITALS: BP 155/71
--- NOTE | 2022-10-16 18:38 | NUR ---
Pt refused any intervention at this time. Walked out/Eloped
[2022-10-16] MEDS ORDERED: HALOPERIDOL LACTATE INJ 5 MG/ML VIAL IM ONE (19:00)
[2022-10-16] MEDS ORDERED: LORAZEPAM INJ 2 MG/ML VIAL IM ONE (19:00)
[2022-10-16] MEDS ORDERED: diphenhydrAMINE HCL 50 MG/ML VIAL IM ONE (19:00)
== END 2022-10-16 18:39 | disposition home or self-care (01) ==
LOC: ER 17:42
DX: Z53.21 Procedure and treatment not carried out due to patient leaving prior to being seen by health care provider (principal)

== ENCOUNTER 2022-12-24 05:27 | Emergency (ER) | payer OTHER ==
--- NOTE | 2022-12-24 05:34 | NUR ---
PATIENT LEFT BEFORE TRIAGE ASSESMENT
== END 2022-12-24 06:04 | disposition left against medical advice (07) ==
LOC: ER 05:38
DX: Z53.21 Procedure and treatment not carried out due to patient leaving prior to being seen by health care provider (principal)

== ENCOUNTER 2023-03-22 16:54 | Emergency (ER) | payer OTHER ==
[~2023-03-22] VITALS: Ht 175.3 cm; Wt 108.9 kg
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
--- NOTE | 2023-03-22 17:27 | NUR ---
Note bandar in [facility] - 03/22/23 at 1731 by DAPHNEY Patient does not wish to proceed with medical care recommended by Dr. DOVE. Patient given information related to possible complications, up to and including , which could occur as a result of leaving the hospital at this time. Patient verbalizes understanding of risks involved due to leaving against medical advice. Patient has signed AMA AND TOOK THE FORM WITH HIM.
[2023-03-22 17:29] VITALS: BP 131/75
[2023-03-22] MEDS ORDERED: KETOROLAC TROMETHAMINE INJ 60 MG/2 ML VIAL IM ONE (17:30)
[2023-03-22] MEDS ORDERED: TDAP [DIPH/PERTUSSIS/TET] 0.5 ML VIAL IM ONE (17:30)
== END 2023-03-22 17:32 | disposition left against medical advice (07) ==
LOC: ER 16:57
DX: S60.511A Abrasion of right hand, initial encounter (principal); S80.211A Abrasion, right knee, initial encounter; S09.8XXA Other specified injuries of head, initial encounter; I10 Essential (primary) hypertension; E11.9 Type 2 diabetes mellitus without complications; F17.200 Nicotine dependence, unspecified, uncomplicated; Z60.2 Problems related to living alone; Z79.899 Other long term (current) drug therapy; Z88.1 Allergy status to other antibiotic agents; Y04.0XXA Assault by unarmed brawl or fight, initial encounter; Y93.89 Activity, other specified; Y92.410 Unspecified street and highway as the place of occurrence of the external cause; Y99.8 Other external cause status

== ENCOUNTER 2023-03-29 16:02 | Emergency (ER) | payer OTHER ==
[~2023-03-29] VITALS: Ht 175.3 cm; Wt 113.4 kg
--- NOTE | 2023-03-29 16:40 | NUR ---
COVID SWAB COLLECTED AND SENT TO LAB
--- NOTE | 2023-03-29 16:40 | NUR ---
WEIGHER AND CRUSHER AT [facility]
[2023-03-29 17:38] LABS: BASOPHILS % (AUTO) 0.6 % (0.0-2.0); EOSINOPHILS % (AUTO) 2.2 % (0.0-6.0); HEMATOCRIT 46 % (39-51); HEMOGLOBIN 15.4 g/dL (13.5-17.5); LYMPHOCYTES # (AUTO) 2.5 K/uL (0.8-4.8); LYMPHOCYTES % (AUTO) 32.2 % (20.0-44.0); MEAN CORPUSCULAR HGB CONC 34 g/dl (31.0-36.0); MEAN CORPUSCULAR VOLUME 93 fL (80-96); MONOCYTES # (AUTO) 0.6 K/uL (0.1-1.30); MONOCYTES % (AUTO) 7.3 % (2.0-12.0); NEUTROPHILS # (AUTO) 4.6 K/uL (1.8-8.9); NEUTROPHILS % (AUTO) 57.7 % (43.0-81.0); PLATELET COUNT (AUTO) 253 K/uL (150-450); RED BLOOD CELL COUNT(AUTO) 4.94 MIL/uL (4.5-6.0); WHITE BLOOD COUNT (AUTO) 7.9 K/uL (4.3-11.0)
[2023-03-29 18:01] LABS: CALCIUM, SERUM 9.3 mg/dL (8.5-10.1); CARBON DIOXIDE 27 mmol/L (21-32); CHLORIDE 99 mmol/L (98-107); GLUCOSE 193 mg/dL (74-106); POTASSIUM 3.6 mmol/L (3.5-5.1); SODIUM SERUM 135 mmol/L (136-145); UREA NITROGEN, BLOOD 7 mg/dL (7-18)
[2023-03-29 18:08] LABS: ALANINE AMINOTRANSFERASE 29 U/L (12-78); ALBUMIN 3.4 g/dL (3.4-5.0); ALKALINE PHOSPHATASE 69 U/L (46-116); ASPARTATE AMINOTRANSFERASE 14 U/L (15-37); BILIRUBIN,DIRECT 0.1 mg/dL (0.0-0.2); BILIRUBIN,TOTAL 0.4 mg/dL (0.2-1.0); TOTAL PROTEIN, SERUM 6.9 g/dL (6.4-8.2)
[2023-03-29 18:09] LABS: ALCOHOL, BLOOD < 3 mg/dL (0-10)
--- NOTE | 2023-03-29 18:16 | NUR ---
URINE SAMPLE COLLECTED AND SENT TO LAB
[2023-03-29 19:20] LABS: BILIRUBIN,URINE NEGATIVE (NEGATIVE); COLOR,URINE YELLOW (YELLOW); LEUKOCYTE ESTERASE ,URINE NEGATIVE (NEGATIVE); NITRITE, URINE NEGATIVE (NEGATIVE); PROTEIN,URINE NEGATIVE (NEGATIVE); UGLUCOSE NEGATIVE (NEGATIVE); UROBILINOGEN,URINE 0.2 EU/dL (0.2)
[2023-03-29 19:33] LABS: BACTERIA,URINE None seen /HPF (None Seen); RBC,URINE 0-2 /HPF (0-2); SQUAMOUS EPITHELIAL CELL,UR None Seen /HPF (None Seen); WBC,URINE NONE SEEN /HPF (0-3)
--- NOTE | 2023-03-29 19:44 | NUR ---
PATIENT APPEARS TO BE RESTING COMFORTABLY WITH EYES CLOSED. VITALS CHECKED.
--- NOTE | 2023-03-29 23:02 | NUR ---
PATIENT ACCEPTED AT [facility] UNDER DR. OROPEZA GOING TO ROOM 126-A [facility] UNIT CALL FOR REPORT #[phone]
--- NOTE | 2023-03-29 23:06 | NUR ---
[facility] CALLED ETA 90-120 MINUTES
--- NOTE | 2023-03-29 23:28 | NUR ---
REPORT GIVEN TO BECKY TATE AT [facility]
--- NOTE | 2023-03-30 01:43 | NUR ---
PT TRANSPORTED TO [facility] WITH [facility]
[2023-03-30 01:44] VITALS: BP 122/81
== END 2023-03-30 01:45 | disposition short-term general hospital (02) ==
LOC: ER 16:05
DX: R45.851 Suicidal ideations (principal); F31.9 Bipolar disorder, unspecified; F17.200 Nicotine dependence, unspecified, uncomplicated; Z60.2 Problems related to living alone; Z79.899 Other long term (current) drug therapy; Z20.822 Contact with and (suspected) exposure to COVID-19; Z88.1 Allergy status to other antibiotic agents
CPT/HCPCS: 99285; 85025; 80048; 80076; 81001; 36415; 87426; 80143; 80320; 80307; C9803 ×2; G0480

== ENCOUNTER 2023-06-26 18:01 | Emergency (ER) | payer OTHER ==
[~2023-06-26] VITALS: Ht 175.3 cm; Wt 113.9 kg
[2023-06-26 19:42] LABS: APPEARANCE,URINE CLEAR (CLEAR); BILIRUBIN,URINE NEGATIVE (NEGATIVE); BLOOD, URINE TRACE-INTA Ery/uL (NEGATIVE); COLOR,URINE YELLOW (YELLOW); KETONES,URINE NEGATIVE (NEGATIVE); LEUKOCYTE ESTERASE ,URINE NEGATIVE (NEGATIVE); NITRITE, URINE NEGATIVE (NEGATIVE); PROTEIN,URINE NEGATIVE (NEGATIVE); UGLUCOSE 3+ mg/dL (NEGATIVE); UROBILINOGEN,URINE 0.2 EU/dL (0.2)
[2023-06-26 19:46] LABS: BASOPHILS % (AUTO) 0.4 % (0.0-2.0); EOSINOPHILS # (AUTO) 0.1 K/uL (0.0-0.7); HEMATOCRIT 50 % (39-51); HEMOGLOBIN 17.1 g/dL (13.5-17.5); LYMPHOCYTES # (AUTO) 2.4 K/uL (0.8-4.8); MEAN CORPUSCULAR HEMOGLOBIN 31 PG (26.0-33.0); MEAN CORPUSCULAR HGB CONC 34 g/dl (31.0-36.0); MEAN CORPUSCULAR VOLUME 92 fL (80-96); MONOCYTES # (AUTO) 0.4 K/uL (0.1-1.30); MONOCYTES % (AUTO) 4.6 % (2.0-12.0); NEUTROPHILS # (AUTO) 6.4 K/uL (1.8-8.9); PLATELET COUNT (AUTO) 256 K/uL (150-450); RED BLOOD CELL COUNT(AUTO) 5.45 MIL/uL (4.5-6.0); RED CELL DISTRIBUTION WIDTH 13.1 % (11.5-15.0); WHITE BLOOD COUNT (AUTO) 9.4 K/uL (4.3-11.0)
[2023-06-26 19:46] LABS: ADD URINE CULTURE NO; BACTERIA,URINE None seen /HPF (None Seen); WBC,URINE 0-2 /HPF (0-3)
[2023-06-26 19:47] LABS: SQUAMOUS EPITHELIAL CELL,UR 0-2 /HPF (None Seen)
[2023-06-26 20:20] LABS: CALCIUM, SERUM 9.5 mg/dL (8.5-10.1); CARBON DIOXIDE 28 mmol/L (21-32); CHLORIDE 99 mmol/L (98-107); CREATININE 1.1 mg/dL (0.6-1.3); GLUCOSE 280 mg/dL (74-106); POTASSIUM 4.1 mmol/L (3.5-5.1); SODIUM SERUM 136 mmol/L (136-145); UREA NITROGEN, BLOOD 13 mg/dL (7-18)
[2023-06-26 20:22] LABS: AMPHETAMINE, URINE NEGATIVE (NEGATIVE); BARBITURATE, URINE NEGATIVE (NEGATIVE); BENZODIAZEPINE, URINE NEGATIVE (NEGATIVE); COCCAINE, URINE NEGATIVE (NEGATIVE); OPIATE, URINE NEGATIVE (NEGATIVE); PHENCYCLIDINE SCREEN,URINE NEGATIVE (NEGATIVE)
[2023-06-26 20:23] LABS: CANNABINOID, URINE POSITIVE (NEGATIVE)
[2023-06-26 20:24] LABS: ALANINE AMINOTRANSFERASE 30 U/L (12-78); ALBUMIN 3.9 g/dL (3.4-5.0); ALCOHOL, BLOOD < 3 mg/dL (0-10); ALKALINE PHOSPHATASE 75 U/L (46-116); ASPARTATE AMINOTRANSFERASE 12 U/L (15-37); BILIRUBIN,DIRECT 0.2 mg/dL (0.0-0.2); BILIRUBIN,TOTAL 0.9 mg/dL (0.2-1.0); SALICYLATE 2.8 mg/dL (2.8-20.0); TOTAL PROTEIN, SERUM 7.9 g/dL (6.4-8.2)
[2023-06-26 20:25] LABS: ACETAMINOPHEN <10 ug/ml (10-30)
[2023-06-26] MEDS ORDERED: INSULIN REGULAR, HUMAN 100 UNIT/ML 10 ML VIAL SQ ONE (21:30)
[2023-06-26] MEDS ORDERED: INSULIN REGULAR, HUMAN 100 UNIT/ML 10 ML VIAL ONE (21:33)
[2023-06-26 23:16] VITALS: BP 136/86; TEMP 98.4; O2SAT 99
== END 2023-06-26 23:16 | disposition home or self-care (01) ==
LOC: ER 18:04
DX: R45.851 Suicidal ideations (principal); R73.9 Hyperglycemia, unspecified; F31.9 Bipolar disorder, unspecified; F17.200 Nicotine dependence, unspecified, uncomplicated; Z20.822 Contact with and (suspected) exposure to COVID-19; Z79.899 Other long term (current) drug therapy; Z60.2 Problems related to living alone; Z88.1 Allergy status to other antibiotic agents
CPT/HCPCS: 99285; 96372; 85025; 80048; 80076; 81001; 36415; 82962; 87426; 80143; 80320; 80307; J1815; C9803; G0480

== ENCOUNTER 2024-06-10 03:37 | Emergency (ER) | payer MEDICAID, OTHER | END 2024-06-10 03:52 | disposition left against medical advice (07) | LOC: ER 03:49 | DX: Z00.00 Encounter for general adult medical examination without abnormal findings (principal); Z53.21 Procedure and treatment not carried out due to patient leaving prior to being seen by health care provider ==